=== PATIENT | male | born 1995 | race Caucasian/White ===

== ENCOUNTER → 2022-04-21 | Outpatient (REF) | payer BC ==
[~2022-04-21] MED LIST: MOTR200T4; No Historical Meds
== END ==
LOC: M WUC 19:21
PROVIDERS: ATTEND Physician Assistant
DX: J06.9 Acute upper respiratory infection, unspecified (principal)

== ENCOUNTER 2023-05-25 11:43 | Day surgery (SDC) | payer BC ==
[~2023-05-25] VITALS: Ht 172.7 cm; Wt 74.7 kg
[2023-05-25] MEDS: NS 1,000 ML IV ONE (12:47)
[2023-05-25 14:24] VITALS: TEMP 97.7
[2023-05-25 14:30] VITALS: BP 118/55; O2SAT 100
== END 2023-05-25 14:40 | disposition home or self-care (01) ==
LOC: M OPP 11:43
PROVIDERS: ATTEND Internal Medicine Gastroenterology
DX: K64.8 Other hemorrhoids (principal); K92.1 Melena; K59.00 Constipation, unspecified; K31.7 Polyp of stomach and duodenum; K22.89 Other specified disease of esophagus; K29.80 Duodenitis without bleeding; K20.0 Eosinophilic esophagitis

== ENCOUNTER 2024-01-27 10:56 | Day surgery (SDC) | payer BC ==
[~2024-01-27] VITALS: Ht 175.3 cm; Wt 77.0 kg
[~2024-01-27 10:56] MED LIST changes: +NS 250 ML IV ONE
[2024-01-27] MEDS ORDERED: LIDOCAINE 2% 100MG/5ML SDV (FOR ANES.) As Ordered ONE (12:13)
[2024-01-27] MEDS ORDERED: propofoL 200 MG/20 ML VIAL As Ordered ONE (12:13)
[2024-01-27 12:31] VITALS: TEMP 98.3
[2024-01-27 12:50] VITALS: BP 118/66; O2SAT 100
== END 2024-01-27 12:56 | disposition home or self-care (01) ==
LOC: M OPP 10:56
PROVIDERS: ATTEND Internal Medicine Gastroenterology
DX: K20.0 Eosinophilic esophagitis (principal); K22.89 Other specified disease of esophagus; F41.9 Anxiety disorder, unspecified; F17.220 Nicotine dependence, chewing tobacco, uncomplicated; Z79.899 Other long term (current) drug therapy

== ENCOUNTER → 2024-05-31 | Outpatient (CLI) | payer BC ==
[~2024-05-31] MED LIST changes: -NS 250 ML IV ONE
== END ==
LOC: M WUC 13:19
PROVIDERS: ATTEND Nurse Practitioner Family
DX: R05.9 Cough, unspecified (principal)

== ENCOUNTER → 2025-03-06 | Outpatient (REF) | payer OTHER ==
[2025-03-06 18:31] LABS: MONO REFLEX EBV COMP NEGATIVE (NEGATIVE)
== END ==
LOC: M LAB REF 16:53
PROVIDERS: ATTEND Physician Assistant Medical
DX: J02.9 Acute pharyngitis, unspecified (principal)